=== PATIENT | female | born 1985 | race Caucasian/White ===

== ENCOUNTER → 2018-02-01 01:13 | Outpatient (CLI) | payer BC, SELFPAY ==
--- NOTE | 2018-02-01 11:41 | DI.REPORT_ITS ---
SYMPTOMS/DIAGNOSIS: DIET-CONTROLLED GESTATIONAL DIABETES MELLITUS, ESTIMATED WEIGHT/AMNIOTIC FLUID INDEX, O24.410 OB ULTRASOUND: Many abnormalities cannot be diagnosed. A normal exam does not exclude a congenital anomaly. Radiology No. [id number] LMP: Exam Date: 02/01/18 [facility] 7 wks 5 days on EDC ([facility]) 03/05/18 Confirmed: HISTORY: ---- PREDICTED GESTATIONAL AGE NUMBER 35+4 weeks with a range of 34+4 weeks to 36+4 weeks. 1 Determined by_X__1ST US___LMP___HISTORY PLACENTA PRESENTATION Grade II Cephalic_X__ Anterior_X__Posterior___ Breech____ Right Left___X____ Transverse(head right___ Fundal___Low-lying___Previa___ Transverse(head left___ Varying BIOMETRY AMNIOTIC FLUID BPD: 90 mm 36+2 weeks Normal HC: 322 mm 36+2 weeks AC: 354 mm 39+2 weeks FL: 73 mm 37+3 weeks AMNIOTIC FLUID INDEX >26 WK CRL: mm weeks Cisterna Magna: mm CI: 0.82 RUQ: 5.19 LUQ: 5.30 Cerebellum: cm EFW: 3416 grams Percentile: 98th RLQ: 4.13 LLQ: 5.94 Total: 20.6 cm Composite AGE= 37+2 wks EDC by US: 02/20/18 BIOPHYSICAL PROFILE ANATOMY IDENTIFIED SCORE 0/2 Heart: 4-Chamber___Rate:BPM 150 LVOT: RVOT: Amniotic Fluid(>2cms)____ Stomach: Kidneys:__X Respirations (>30 secs) Bladder:___X Post. Fossa: Body Flex/Extension 3 vessel cord: Ventricles: cord insertion: Lips:____ Extremity Flex/Extension spinal morphology: Nose: Total Score= Palate: NS=not seen
== END ==
PROVIDERS: PCP Physician Assistant Medical; Visit Provider Advanced Practice Midwife
DX: O24.410 Gestational diabetes mellitus in pregnancy, diet controlled (principal); Z34.03 Encounter for supervision of normal first pregnancy, third trimester; Z36.85 Encounter for antenatal screening for Streptococcus B
CPT/HCPCS: 76816; 87081

== ENCOUNTER 2018-02-06 13:54 | Outpatient (CLI) | payer BC, SELFPAY | END 2018-02-06 14:14 | PROVIDERS: PCP Physician Assistant Medical; Visit Provider Midwife | DX: O24.419 Gestational diabetes mellitus in pregnancy, unspecified control (principal); Z3A.36 36 weeks gestation of pregnancy | CPT/HCPCS: 59025 ==

== ENCOUNTER 2018-02-10 16:55 | Outpatient (CLI) | payer BC, SELFPAY | END 2018-02-10 17:15 | PROVIDERS: PCP Physician Assistant Medical; Visit Provider Advanced Practice Midwife | DX: O24.419 Gestational diabetes mellitus in pregnancy, unspecified control (principal); Z3A.36 36 weeks gestation of pregnancy | CPT/HCPCS: 59025 ==

== ENCOUNTER 2018-02-13 16:46 | Outpatient (CLI) | payer BC, SELFPAY | END 2018-02-13 17:06 | LOC: LBN 16:47 → BCD 02-22 17:06 | PROVIDERS: PCP Physician Assistant Medical; Visit Provider Midwife | DX: O24.419 Gestational diabetes mellitus in pregnancy, unspecified control (principal); Z3A.37 37 weeks gestation of pregnancy | CPT/HCPCS: 59025 ==

== ENCOUNTER 2018-02-16 14:38 | Outpatient (CLI) | payer BC, SELFPAY | END 2018-02-16 14:58 | PROVIDERS: PCP Physician Assistant Medical; Referring Provider Advanced Practice Midwife; Visit Provider Advanced Practice Midwife | DX: O24.419 Gestational diabetes mellitus in pregnancy, unspecified control (principal); Z3A.38 38 weeks gestation of pregnancy | CPT/HCPCS: 59025 ==

== ENCOUNTER 2018-02-20 14:11 | Outpatient (CLI) | payer BC, SELFPAY | END 2018-02-20 14:31 | PROVIDERS: PCP Physician Assistant Medical; Visit Provider Advanced Practice Midwife | DX: O24.419 Gestational diabetes mellitus in pregnancy, unspecified control (principal); Z3A.38 38 weeks gestation of pregnancy | CPT/HCPCS: 59025 ==

== ENCOUNTER 2018-02-23 16:01 | Outpatient (CLI) | payer BC, SELFPAY ==
[2018-02-23 17:13] LABS: HCT 37.9 % (36.0-46.0); HGB 12.8 g/dL (12.0-15.5); Mean Corp. HGB Concentration 33.8 g/dL (32.0-36.0); Mean Corpuscular Hemoglobin 31.5 pg (27.0-33.0); Mean Corpuscular Volume 93.3 fL (80-95); Mean Platelet Volume 10.5 fL (8.0-11.0); Platelet Count 180 x1000/uL (130-400); RBC 4.06 m/cumm (4.00-5.20); RBC Distribution Width 12.5 % (11.7-14.6); White Blood Cell Count 7.74 k/cumm (4.4-10.8)
[2018-02-23 17:24] LABS: ALT 16 U/L (12-78); AST 17 U/L (15-37); Albumin 2.2 g/dL (3.4-5.0); Alkaline Phosphatase 131 U/L (46-116); Bilirubin, Direct 0.05 mg/dL (0.00-0.20); Bilirubin, Total 0.2 mg/dL (0.2-1.0); CREATININE 0.69 mg/dL (0.55-1.02); Total Protein 5.7 g/dL (6.4-8.2); Uric Acid 4.6 mg/dL (2.6-6.0)
[2018-02-23 18:47] LABS: PROTEIN 14.4 mg/dL
[2018-02-23 18:48] LABS: COMMENT (LAB VIEW ONLY) 52.28 mg/dL; Prot/Crea Ur Ratio 0.27
== END 2018-02-23 16:21 ==
PROVIDERS: PCP Physician Assistant Medical; Visit Provider Advanced Practice Midwife
DX: O24.420 Gestational diabetes mellitus in childbirth, diet controlled (principal); Z3A.38 38 weeks gestation of pregnancy
CPT/HCPCS: 36415; 80076; 85027; 59025; 82565; 84156; 84550; G0378

== ENCOUNTER 2018-02-27 00:42 | Outpatient (CLI) | payer BC, SELFPAY ==
--- NOTE | 2018-02-27 12:49 | DI.US_ITS ---
SYMPTOMS/DIAGNOSIS: SERIAL GROWTH, UTERINE SIZE DISCREPANCY, O26.843, GESTATIONAL DIABETES, O24.419 OBSTETRICAL ULTRASOUND: Many abnormalities cannot be diagnosed. A normal exam does not exclude a congenital anomaly. Radiology No. [id number] LMP: Exam Date: 02/27/18 [facility] 7 wks 5 days on 07/22/17 EDC ([facility]) 03/05/18 Confirmed: HISTORY: ---- PREDICTED GESTATIONAL AGE NUMBER 39 weeks with a range of 38 weeks to 40 weeks. 1 Determined by_X__1ST US___LMP___HISTORY PLACENTA PRESENTATION Grade II Cephalic_X__ Anterior_X__Posterior___ Breech____ Right Left Transverse(head right___ Fundal___Low-lying___Previa___ Transverse(head left___ Varying BIOMETRY AMNIOTIC FLUID BPD: 95 mm 38+4 weeks Normal HC: 347 mm 40+2 weeks AC: 399 mm OFF CHART FL: 78 mm 40 weeks AMNIOTIC FLUID INDEX >26 WK CRL: mm weeks Cisterna Magna: mm CI: 0.8 RUQ: 2.98 LUQ: 6.83 Cerebellum: cm EFW: 4560 grams Percentile: 99th RLQ: 5.19 LLQ: 4.55 Total: 19.6 cm Composite AGE= 39+4 wks EDC by US: 03/02/18 BIOPHYSICAL PROFILE ANATOMY IDENTIFIED SCORE 0/2 Heart: 4-Chamber___Rate:BPM 155 LVOT: RVOT: Amniotic Fluid(>2cms)____ Stomach:___X____ Kidneys: Respirations (>30 secs) Bladder:____X____ Post. Fossa: Body Flex/Extension 3 vessel cord: Ventricles: cord insertion: Lips:____ Extremity Flex/Extension spinal morphology: Nose: Total Score= Palate: NS=not seen COMMENTS: Routine examination. There is a single intrauterine gestation. Estimated sonographic age is 39 weeks 4 days. The fetus is in the cephalic presentation. heart rate is 155 beats per minute. An entire anatomic evaluation was not performed at this time. The amniotic fluid index is 19.6 cm. Visually, the amniotic fluid is within normal limits. Estimated weight is 4560 g, which is the 99th percentile. The placenta is anterior without evidence of previa. IMPRESSION: Single living intrauterine gestation. Estimated sonographic age is 39 weeks 4 days.
== END 2018-02-27 01:02 ==
PROVIDERS: PCP Physician Assistant Medical; Visit Provider Advanced Practice Midwife
DX: O26.843 Uterine size-date discrepancy, third trimester (principal); O24.419 Gestational diabetes mellitus in pregnancy, unspecified control
CPT/HCPCS: 76816

== ENCOUNTER 2018-02-27 08:57 | Outpatient (CLI) | payer BC, SELFPAY | END 2018-02-27 09:17 | PROVIDERS: PCP Physician Assistant Medical; Visit Provider Midwife | DX: O24.419 Gestational diabetes mellitus in pregnancy, unspecified control (principal); Z3A.39 39 weeks gestation of pregnancy | CPT/HCPCS: 59025 ==

== ENCOUNTER 2018-02-28 10:04 | Outpatient (CLI) | payer BC, SELFPAY ==
[2018-02-28 10:29] LABS: Abs Immature Grans 0.02 k/cumm (0.0-0.09); Absolute Basophil Count 0.01 k/cumm (0.0-0.2); Absolute Eosinophil Count 0.04 k/cumm (0.0-0.7); Absolute Lymphocyte Count 1.95 k/cumm (1.2-3.4); Absolute Monocyte Count 0.41 k/cumm (0.11-0.7); Absolute Neutrophil Count 5.68 k/cumm (1.2-6.7); Basophils % 0.1; Eosinophils % 0.5; HCT 40.1 % (36.0-46.0); HGB 13.7 g/dL (12.0-15.5); Immature Grans % 0.2; Mean Corp. HGB Concentration 34.2 g/dL (32.0-36.0); Mean Corpuscular Volume 93.7 fL (80-95); Mean Platelet Volume 10.6 fL (8.0-11.0); Monocytes % 5.1; Neutrophils % 70.1; Platelet Count 179 x1000/uL (130-400); RBC 4.28 m/cumm (4.00-5.20); RBC Distribution Width 12.5 % (11.7-14.6); White Blood Cell Count 8.11 k/cumm (4.4-10.8)
== END 2018-02-28 10:24 ==
PROVIDERS: PCP Physician Assistant Medical; Visit Provider Obstetrics & Gynecology
DX: Z34.91 Encounter for supervision of normal pregnancy, unspecified, first trimester (principal); Z01.84 Encounter for antibody response examination
CPT/HCPCS: 36415; 86850; 86900; 86901; 85025

== ENCOUNTER 2018-03-01 06:09 | Inpatient (IN) | payer BC, SELFPAY ==
[2018-03-01] VITALS (12 sets, daily range): BP systolic 133; BP diastolic 92; PULSE 93; RESP 16–18; TEMP 36.9; O2SAT 94–100
--- NOTE | 2018-03-01 07:02 | W.PM.HP.N ---
Date of service: 03/01/18 Assessment and Plan (1) Diet controlled gestational diabetes mellitus (GDM) in third trimester: Current visit: No Status: Acute (2) macrosomia during : Current visit: Yes Status: Acute Plan to proceed with primary section for suspected macrosomia in a patient whose is complicated by GDM. The patient was counseled on the risks of surgery including hemorrhage, infection and injury to other organs such as bowel and bladder. All questions were answered to the patient's satisfaction and consent was obtained. History of Present Illness Chief Complaint: Suspected macrosomia. Gestational diabetes Narrative: 32 year old @39.2 weeks here today for primary section. The patient's has been complicated by GDM and EFW of 4560 gms with growth at >99%. The patient was counseled on the increased risk of abnormal labors and shoulder dystocia. The patient elects to proceed with primary section at term. Review of Systems Review of Systems All systems reviewed & are unremarkable except as noted in HPI and below PFSH Family History Father Hyperlipidemia Medical History Contraception Vaginal pain Social History adopted: No foster care: No household members: spouse lives independently: Yes number of children: 0 current occupational status: employed current occupation: [employer] pets and animals: Yes pets and animals: cat(s) duration: 30-45 minutes/day Smoking/Tobacco Use Status: Never alcohol intake: current alcohol intake frequency: a few times a week Alcohol type: beer substance use type: does not use special esperanza needs: No seatbelt use: always helmet use: Yes water heater temp set < 120 deg: No working smoke detector in home: Yes fire extinguisher in home: Yes carbon monox detector in home: Yes firearms in home: Yes victim of physical abuse: No victim of emotional abuse: No victim of sexual abuse: No Meds Home Medications Medication Instructions Recorded Confirmed Type PNV cmb#95-ferrous fumarate-FA 1 ea PO DAILY 08/02/17 03/01/18 History [Prenavite] aspirin [Aspir 81] 81 mg PO DAILY #180 tab-cap MDD 81 08/31/17 03/01/18 Rx mg blood sugar diagnostic [Freestyle #180 strip 12/12/17 02/23/18 Rx Lite Strips] blood-glucose meter [Freestyle #1 kit 12/12/17 02/23/18 Rx Lite Meter] lancets [Freestyle Lancets] #180 ea 12/12/17 02/23/18 Rx Allergies Allergy/AdvReac Type Severity Reaction Status Date / Time No Known Drug Allergies Allergy Unverified 03/01/18 06:41 Exam Const General: cooperative, healthy appearing and well groomed Chest Chest: normal inspection of the chest Resp Auscultation: clear to auscultation bilaterally Cardio Rate: regular rate Rhythm: regular rhythm Neuro General: alert, awake and oriented x3
--- NOTE | 2018-03-01 07:07 | HPE_ITS ---
Date of service: 03/01/18 Assessment and Plan (1) Diet controlled gestational diabetes mellitus (GDM) in third trimester: Current visit: No Status: Acute (2) macrosomia during : Current visit: Yes Status: Acute Plan to proceed with primary section for suspected macrosomia in a patient whose is complicated by GDM. The patient was counseled on the risks of surgery including hemorrhage, infection and injury to other organs such as bowel and bladder. All questions were answered to the patient's satisfaction and consent was obtained. History of Present Illness Chief Complaint: Suspected macrosomia. Gestational diabetes Narrative: 32 year old @39.2 weeks here today for primary section. The patient's has been complicated by GDM and EFW of 4560 gms with growth at >99%. The patient was counseled on the increased risk of abnormal labors and shoulder dystocia. The patient elects to proceed with primary section at term. Review of Systems Review of Systems All systems reviewed & are unremarkable except as noted in HPI and below PFSH Family History Father Hyperlipidemia Medical History Contraception Vaginal pain Social History adopted: No foster care: No household members: spouse lives independently: Yes number of children: 0 current occupational status: employed current occupation: [employer] pets and animals: Yes pets and animals: cat(s) duration: 30-45 minutes/day Smoking/Tobacco Use Status: Never alcohol intake: current alcohol intake frequency: a few times a week Alcohol type: beer substance use type: does not use special esperanza needs: No seatbelt use: always helmet use: Yes water heater temp set < 120 deg: No working smoke detector in home: Yes fire extinguisher in home: Yes carbon monox detector in home: Yes firearms in home: Yes victim of physical abuse: No victim of emotional abuse: No victim of sexual abuse: No Meds Home Medications Medication Instructions Recorded Confirmed Type PNV cmb#95-ferrous fumarate-FA 1 ea PO DAILY 08/02/17 03/01/18 History [Prenavite] aspirin [Aspir 81] 81 mg PO DAILY #180 tab-cap MDD 81 08/31/17 03/01/18 Rx mg blood sugar diagnostic [Freestyle #180 strip 12/12/17 02/23/18 Rx Lite Strips] blood-glucose meter [Freestyle #1 kit 12/12/17 02/23/18 Rx Lite Meter] lancets [Freestyle Lancets] #180 ea 12/12/17 02/23/18 Rx Allergies Allergy/AdvReac Type Severity Reaction Status Date / Time No Known Drug Allergies Allergy Unverified 03/01/18 06:41 Exam Const General: cooperative, healthy appearing and well groomed Chest Chest: normal inspection of the chest Resp Auscultation: clear to auscultation bilaterally Cardio Rate: regular rate Rhythm: regular rhythm Neuro General: alert, awake and oriented x3
[2018-03-01] MEDS: Lactated Ringers 1,000 ML 125 ML IV ×2 (07:35→09:09)
[2018-03-01] MEDS: Oxytocin 10 UNITS/ML VIAL (08:25)
[2018-03-01] MEDS: Ketorolac 30 MG/ML VIAL IVP (10:47)
[2018-03-01] MEDS: Normal Saline Flush 10 ML SYR IVP (10:48)
[2018-03-01] MEDS: Acetaminophen 325 MG TAB 650 MG PO ×2 (14:02→18:20)
--- NOTE | 2018-03-01 15:50 | ROE_ITS ---
Date of service: 03/01/18 Operative Note DATE OF PROCEDURE: 03/01/18 PRE-OP DIAGNOSIS: 39 weeks. GDM with suspected macrosomia POST-OP DIAGNOSIS: same PROCEDURE: Primary low transverse section SURGEON: Merritt Porter ENVIRONMENTAL SERVICES ASSISTANT: Carline Santillan ANESTHESIA: spinal ESTIMATED BLOOD LOSS: 900 Patient was transported to: PACU Patient's condition: stable Findings: 1. Delivered a LBM with thick meconium. 9,9. Nuchal cord x 1 weighing 9 lbs 11 oz. 2. Mild uterine atony managed with IV and intrauterine pitocin Procedure Description: The patient was taken to the operating room and after adequate spinal anesthesia the patient was prepped and draped in the usual sterile manner. A Pfannestiel skin incision was made with a 10 blade scalpel. Dissection was carried down to the underlying fascia with the Bovie. The fascia was opened with the scalpel and extended laterally in either direction with Sutherland scissors. The superior and inferior aspects of the fascial incision were dissected off the underlying layer of rectus muscles with both blunt and sharp dissection. The rectus were unzipped along the linea alba with blunt and sharp dissection. The peritoneum was opened with Metzenbaum scissors and extended superior and inferiorly with the scissors. The bladder blade was inserted. The vesicouterine flap was tented up with pickups and incised with the Metzenbaum scissors. The bladder flap was developed digitally. The uterus was incised in a transverse manner with the scalpel and the incision extended via stretch. The was found in cephalic presentation with thick meconium and nuchal cord x 1. The cord was clamped and cut and the was handed off to the awaiting geospatial applications developer. The placenta was manually extracted and cleared of all clots and debris. The incision was closed first with a running locked stitch of #1 chronic and then a second layer in running #1 chromic. The bladder flap was reapproximated with a running stitch of 3-0 vicryl. There was a small bleeder at the fimbria of the right fallopian tube which was managed with the bovie cautery. Mild uterine atony was encountered and in addition to IV pitocin which had been administered , 10 units of pitocin was injected intrauterine. The peritoneum was closed with a running stitch of 2-0 vicryl. The fascia was closed with a running stitch of 0 -vicryl. The subcutaneous tissues were irrigated and bleeders cauterized. The subcutaneous tissues were reapproximated with interrupted sutures of 3-0 vicryl. The skin was closed with a running subcuticular stitch of 4-0 monocryl and dermabond applied. Sponge lap and need counts were correct x 3 at the conclusion of the procedure. The patient tolerated the procedure well and was transferred to PACU in stable condition.
[2018-03-01] MEDS: Lactated Ringers 1,000 ML 120 ML IV (16:35)
[2018-03-02] MEDS: Acetaminophen 325 MG TAB 650 MG PO (04:55)
[2018-03-02 07:18] LABS: HCT 30.3 % (36.0-46.0); HGB 10.4 g/dL (12.0-15.5); Mean Corp. HGB Concentration 34.3 g/dL (32.0-36.0); Mean Corpuscular Hemoglobin 32.7 pg (27.0-33.0); Mean Corpuscular Volume 95.3 fL (80-95); Mean Platelet Volume 10.8 fL (8.0-11.0); Platelet Count 130 x1000/uL (130-400); RBC 3.18 m/cumm (4.00-5.20); RBC Distribution Width 12.5 % (11.7-14.6); White Blood Cell Count 10.77 k/cumm (4.4-10.8)
[2018-03-02] MEDS: oxyCODONE 5 mg/Acetaminophen 325 mg TAB PO ×4 (08:15→19:59)
[2018-03-02] MEDS: Prenatal Multivitamin w/CA,FE TAB 1 TAB PO (08:16)
[2018-03-02] MEDS: Docusate Sodium 100 MG CAP PO (08:16)
[2018-03-03] MEDS: oxyCODONE 5 mg/Acetaminophen 325 mg TAB PO ×4 (00:14→12:26)
[2018-03-03] MEDS: Docusate Sodium 100 MG CAP PO (08:51)
[2018-03-03] MEDS: Prenatal Multivitamin w/CA,FE TAB 1 TAB PO (08:51)
== END 2018-03-03 14:43 | disposition home or self-care (01) | DRG 766 ==
LOC: PDS 06:09 → OBS 10:08
PROVIDERS: Admitting Provider Obstetrics & Gynecology; PCP Physician Assistant Medical; Visit Provider Obstetrics & Gynecology
PROC: 10D00Z1 Extraction of Products of Conception, Low, Open Approach (ICD-10-PCS; CPT 59514; principal; 2018-03-01 07:30)
DX: O24.420 Gestational diabetes mellitus in childbirth, diet controlled (principal); Z37.0 Single live birth; O69.81X0 Labor and delivery complicated by cord around neck, without compression, not applicable or unspecified; O77.0 Labor and delivery complicated by meconium in amniotic fluid; Z3A.39 39 weeks gestation of pregnancy
CPT/HCPCS: 59514; 36415; 85027; 99223; J0690; J2370; J2405; J2590; J3010; J3490

== ENCOUNTER 2018-09-14 17:22 | Outpatient (REF) | payer BC, SELFPAY | END 2018-09-14 17:42 | LOC: NCHCN 17:22 | PROVIDERS: PCP Physician Assistant Medical; Visit Provider Specialist/Technologist Athletic Trainer | DX: L08.9 Local infection of the skin and subcutaneous tissue, unspecified (principal) | CPT/HCPCS: 87077; 87070; 87186; 87205 ==

== ENCOUNTER 2019-07-25 12:09 | Outpatient (CLI) | payer BC, SELFPAY ==
[2019-07-25 12:45] LABS: Abs Immature Grans 0.02 k/cumm (0.0-0.09); Absolute Basophil Count 0.02 k/cumm (0.0-0.2); Absolute Eosinophil Count 0.06 k/cumm (0.0-0.7); Absolute Lymphocyte Count 2.24 k/cumm (1.2-3.4); Absolute Monocyte Count 0.55 k/cumm (0.11-0.7); Basophils % 0.2; Eosinophils % 0.7; HCT 40.5 % (36.0-46.0); HGB 13.8 g/dL (12.0-15.5); Immature Grans % 0.2 %; Lymphocytes % 25.5; Mean Corp. HGB Concentration 34.1 g/dL (32.0-36.0); Mean Corpuscular Hemoglobin 30.6 pg (27.0-33.0); Mean Corpuscular Volume 89.8 fL (80-95); Mean Platelet Volume 9.7 fL (8.0-11.0); Monocytes % 6.3; Neutrophils % 67.1; Platelet Count 235 x1000/uL (130-400); RBC 4.51 m/cumm (4.00-5.20); RBC Distribution Width 13.1 % (11.7-14.6); White Blood Cell Count 8.79 k/cumm (4.4-10.8)
[2019-07-25 13:43] LABS: TSH (W/Ref FT4) 1.31 uIU/mL (0.36-3.74)
[2019-07-26 11:01] LABS: Rubella IgG Ab (UVM) Positive (See Note); Varicella IgG Antibody Positive (See Note)
[2019-07-26 11:20] LABS: Hepatitis B Surface Ag Negative (Negative)
[2019-07-26 11:21] LABS: HIV-1/2 Ag & Ab Screen Negative (Negative)
[2019-07-26 11:23] LABS: Hepatitis C Ab w Rflx HCV PCR Negative (Negative)
[2019-07-27 09:50] LABS: Syphilis Total Ab w/Reflex Nonreactive (Nonreactive)
== END 2019-07-25 12:29 ==
PROVIDERS: PCP Physician Assistant Medical; Visit Provider Advanced Practice Midwife
DX: Z34.91 Encounter for supervision of normal pregnancy, unspecified, first trimester (principal); Z11.4 Encounter for screening for human immunodeficiency virus [HIV]; Z11.59 Encounter for screening for other viral diseases; Z01.84 Encounter for antibody response examination
CPT/HCPCS: 36415; 86787; 86803; 86850; 86900; 86901; 87340; 87389; 84443; 85025; 86762; 86780

== ENCOUNTER 2019-07-25 13:46 | Outpatient (REF) | payer BC, SELFPAY ==
[2019-07-25 15:21] LABS: *AMPHETAMINES SCREEN URINE Negative (Negative); *BARBITURATES SCREEN URINE Negative (Negative); *BENZODIAZEPINES SCREEN URINE Negative (Negative); Cannabinoids THC Negative (Negative); Cocaine Screen,Urine Negative (Negative); METHADONE URINE SCREEN Negative (Negative); OPIATES URINE SCREEN Negative (Negative)
[2019-07-25 15:23] LABS: Tricyclic Antidepressants Negative (Negative)
[2019-07-28 11:22] LABS: Buprenorphine Negative; Norbuprenorphine Negative
== END 2019-07-25 14:06 ==
LOC: LBN 13:46
PROVIDERS: PCP Physician Assistant Medical; Visit Provider Advanced Practice Midwife
DX: Z34.91 Encounter for supervision of normal pregnancy, unspecified, first trimester (principal)
CPT/HCPCS: 80307; 87086

== ENCOUNTER 2019-07-30 01:20 | Outpatient (CLI) | payer BC, SELFPAY ==
--- NOTE | 2019-07-30 12:15 | DI.US_ITS ---
EXAM: US OB 1ST TRIMESTER CLINICAL HISTORY: PT DECLINES T/V USG. Z34.90 SUPERVISION NORMAL TECHNIQUE: Ultrasound performed using standard protocol. OB ultrasound was performed utilizing 1st trimester protocol. COMPARISON: US OB HERNAN weight from 02/27/2018 FINDINGS: There is a single viable intrauterine gestation. Unremarkable appearance of the trophoblast. Annada- rump length measurements are consistent with gestational age of 11 weeks 0 days and EDC of 02/18/2020 . cardiac activity is observed at a rate of 165 BPM. DATA REPOSITORY:
== END 2019-07-30 01:40 ==
PROVIDERS: PCP Physician Assistant Medical; Visit Provider Advanced Practice Midwife
DX: Z34.90 Encounter for supervision of normal pregnancy, unspecified, unspecified trimester (principal); Z3A.11 11 weeks gestation of pregnancy
CPT/HCPCS: 76801

== ENCOUNTER 2019-08-07 08:05 | Outpatient (CLI) | payer BC, SELFPAY ==
[2019-08-07 09:22] LABS: Glucose,1 Hr (Glucola) 154 mg/dL (80-140)
[2019-08-07 09:58] LABS: Kit/Specimen SENT
== END 2019-08-07 08:25 ==
PROVIDERS: PCP Physician Assistant Medical; Visit Provider Advanced Practice Midwife
DX: Z34.91 Encounter for supervision of normal pregnancy, unspecified, first trimester (principal); Z36.89 Encounter for other specified antenatal screening
CPT/HCPCS: 36415; 82950

== ENCOUNTER 2019-09-20 01:07 | Outpatient (CLI) | payer OTHER, SELFPAY ==
--- NOTE | 2019-09-20 06:45 | DI.US_ITS ---
EXAM: US OB 2-3 TRIMESTER CLINICAL HISTORY: anatomy survey at 18 wks,z34.90. TECHNIQUE: Transabdominal obstetrical ultrasound performed. COMPARISON: US OB 1ST TRIMESTER from 07/30/2019 FINDINGS: Transabdominal obstetrical ultrasound performed. FINDINGS: Number of fetuses: One. position: Variable heart rate: 147 bpm. Placental grade: 0-1 Placental location: Posterior. No evidence of previa. BIOMETRIC DATA: BPD: 4.2cm= 18.6 weeks HC: 15.6cm = 18+ 4 weeks AC: 13.7cm 19+ 1 weeks FL: 2.8cm 18.3 weeks Cisterna Magna: 3.5 millimeters Cerebellum: 1.88 cm EFW: 255 grms 65% Composite Age: 18+ 5 EDC by US: 16 February 2020 Amount of fluid is within normal limits. ANATOMICAL SURVEY: Four-chambered heart: Unremarkable. LVOT: Unremarkable. RVOT: Unremarkable. Left-sided stomach: Unremarkable. urinary bladder: Unremarkable. Bilateral kidneys: Unremarkable. Three-vessel cord: Unremarkable. Cord insertion: Unremarkable. Umbilical artery velocity: Unremarkable. Posterior fossa:Unremarkable. ventricles: Unremarkable. nose: Unremarkable. lips: Unremarkable. palate: Unremarkable. spine: Unremarkable. Two arms and two legs: Unremarkable. IMPRESSION: 1. Single live intrauterine gestation measuring 18 weeks 5 days. 2. Normal anatomic survey. DATA REPOSITORY:
--- NOTE | 2019-11-01 15:10 | W.DIABETESNO ---
Date of service: 11/01/19 Time of Service: 15:10 Diabetes Note NOTE: Unable to contact Anna, left message, emailed and sent letter to home re: GDM and diet. Will attempt to meet at next appt in house. 3 hour GTT scheduled for 11/07/19. Time Spent in Nutritional Counseling and Treatment: 0 time
== END 2019-09-20 01:27 ==
PROVIDERS: PCP Physician Assistant Medical; Visit Provider Advanced Practice Midwife
DX: Z34.92 Encounter for supervision of normal pregnancy, unspecified, second trimester (principal); Z3A.18 18 weeks gestation of pregnancy
CPT/HCPCS: 76805

== ENCOUNTER 2019-11-07 02:34 | Outpatient (CLI) | payer OTHER, SELFPAY ==
[2019-11-07 08:24] LABS: Mean Corp. HGB Concentration 33.3 g/dL (32.0-36.0); Mean Corpuscular Hemoglobin 30.9 pg (27.0-33.0); Mean Corpuscular Volume 92.8 fL (80-95); Mean Platelet Volume 9.7 fL (8.0-11.0); Platelet Count 225 x1000/uL (130-400); RBC 3.88 m/cumm (4.00-5.20); RBC Distribution Width 13.2 % (11.7-14.6); White Blood Cell Count 8.54 k/cumm (4.4-10.8)
[2019-11-07 09:59] LABS: Glucose 1 Hour 177 mg/dL
[2019-11-07 12:08] LABS: Glucose 3 Hour 118 mg/dL
== END 2019-11-07 02:54 ==
PROVIDERS: PCP Physician Assistant Medical; Visit Provider Advanced Practice Midwife
DX: O99.810 Abnormal glucose complicating pregnancy (principal)
CPT/HCPCS: 36410; 85027; 82951

== ENCOUNTER 2019-12-18 13:26 | Outpatient (CLI) | payer OTHER, SELFPAY ==
[2019-12-18 14:45] LABS: HCT 35.5 % (36.0-46.0); HGB 11.7 g/dL (12.0-15.5); Mean Corpuscular Hemoglobin 30.2 pg (27.0-33.0); Mean Corpuscular Volume 91.7 fL (80-95); Mean Platelet Volume 10.1 fL (8.0-11.0); Platelet Count 252 x1000/uL (130-400); RBC 3.87 m/cumm (4.00-5.20); RBC Distribution Width 13.3 % (11.7-14.6); White Blood Cell Count 8.21 k/cumm (4.4-10.8)
--- NOTE | 2019-12-18 15:13 | DIABASSESS_ITS ---
Date of service: 12/18/19 Time of Service: 15:13 Diabetes Note NOTE: Met with Anna in [facility] today. ROBER 02/18/20 and reports feeling tired but well overall. She reports fasting sugars <95mg/dl. Post prandials range from 91-145 mg/dl. She reports readings > 130 mg/dl occur after eating convenience foods. I reviewed importance of maintaining tight blood sugar control and provided her with meal plan ideas. She is knowledgeable about nutrition and diabetes from previous and is motivated to follow good nutrition for this . She is no longer checking blood sugars but is willing to check them as MD recommends. Overall, she is follow well balanced meals and blood sugar in adequate control. Time Spent in Nutritional Counseling and Treatment: 10 min spent face to face
== END 2019-12-18 13:46 ==
PROVIDERS: PCP Physician Assistant Medical; Visit Provider Advanced Practice Midwife
DX: Z34.93 Encounter for supervision of normal pregnancy, unspecified, third trimester (principal); Z3A.30 30 weeks gestation of pregnancy
CPT/HCPCS: 36415; 85027; 86850; 90384

== ENCOUNTER 2020-01-15 01:29 | Outpatient (CLI) | payer OTHER, SELFPAY ==
--- NOTE | 2020-01-15 08:00 | DI.US_ITS ---
EXAM: US OB HERNAN WEIGHT CLINICAL HISTORY: Suspected macrosomia,Z34.90. TECHNIQUE: Transabdominal obstetrical ultrasound performed. COMPARISON: US US OB 2-3 TRIMESTER from 09/20/2019 FINDINGS: Transabdominal obstetrical ultrasound performed. FINDINGS: Number of fetuses: One. position: Cephalic heart rate: 141 bpm. Placental location: Posterior. No evidence of previa. BIOMETRIC DATA: EFW: 3315 grms 98% Composite Age: 37 weeks 3 days EDC: 02/02/2020 Heart Rate: 141BPM Amniotic fluid index: 21 cm. Visually, amount of fluid is within normal limits. IMPRESSION: 1. Single live intrauterine gestation as above. 2. Estimated weight is 3315 g. This is a 98th percentile. DATA REPOSITORY:
== END 2020-01-15 01:49 ==
PROVIDERS: PCP Physician Assistant Medical; Visit Provider Obstetrics & Gynecology
DX: Z34.93 Encounter for supervision of normal pregnancy, unspecified, third trimester (principal)
CPT/HCPCS: 76816

== ENCOUNTER 2020-01-22 15:34 | Outpatient (REF) | payer OTHER, SELFPAY ==
[2020-01-22 17:07] LABS: *AMPHETAMINES SCREEN URINE Negative (Negative); *BARBITURATES SCREEN URINE Negative (Negative); *BENZODIAZEPINES SCREEN URINE Negative (Negative); Cannabinoids THC Negative (Negative); Cocaine Screen,Urine Negative (Negative); METHADONE URINE SCREEN Negative (Negative); OPIATES URINE SCREEN Negative (Negative)
[2020-01-22 17:08] LABS: Tricyclic Antidepressants Negative (Negative)
[2020-01-29 18:47] LABS: Buprenorphine Negative
== END 2020-01-22 15:54 ==
LOC: LBN 15:34
PROVIDERS: PCP Physician Assistant Medical; Visit Provider Obstetrics & Gynecology Gynecology
DX: Z34.90 Encounter for supervision of normal pregnancy, unspecified, unspecified trimester (principal)
CPT/HCPCS: 80307; 87081

== ENCOUNTER 2020-01-28 11:50 | Observation (INO) | payer OTHER, SELFPAY | END 2020-01-28 15:00 | disposition home or self-care (01) | LOC: OBS 16:00 | PROVIDERS: Admitting Provider Obstetrics & Gynecology Gynecology; PCP Physician Assistant Medical; Visit Provider Obstetrics & Gynecology Gynecology | DX: O47.1 False labor at or after 37 completed weeks of gestation (principal); Z3A.37 37 weeks gestation of pregnancy; O34.211 Maternal care for low transverse scar from previous cesarean delivery | CPT/HCPCS: G0378 ==

== ENCOUNTER 2020-01-30 16:24 | Inpatient (IN) | payer OTHER, SELFPAY ==
--- NOTE | 2020-01-30 17:43 | HPE_ITS ---
Date of service: 01/30/20 Time of Service: 17:43 Assessment and Plan Assessment and plan (1) Uterine contractions: Status: Acute Assessment and plan: Plan at this time is to proceed with a deli very. She was informed of the risks of the procedure including the risk of infection damage to surrounding structures including bowel bladder and surrounding organs. She is aware that in the event of bleeding a hysterectomy may be needed. Informed consent was signed and her questions were answered. (2) Previous delivery affecting : Status: Acute Assessment and plan: Patient prior the liver. She wishes to proceed with a delivery and permanent sterilization. History of Present Illness History of Present Illness Chief Complaint: IUP at 37w2d EGA, contractions, previous c/s Narrative: Pt is a 34yo female currently 37w2d EGA by LMP dating confirmed by 1st trimester u/s who presents to with report of painful, regular contractions beginning approximately an hour ago. The patient experienced similar symptoms on 01/28/2020 and had been observed for several hours on the center with no appreciable change in cervical dilation. [facility] She has had a total of 14 visits for semester blood pressure 106/74 there trimester blood pressure 110/78. She had normal morphology ultrasound and was followed for an elevated Glucola with normal capillary blood glucose measurements during her . Patient is Rh- and received RhoGam at 28 weeks. During her was she was counseled regarding versus repeat . She declined a trial of labor and has signed a Medicaid consent for permanent sterilization. Review of Systems Constitutional Constitutional: Reports body ache(s) and Reports difficulty sleeping Cardiovascular Cardiovascular: Reports system reviewed and no additional complaints, except as documented Respiratory Respiratory: Reports system reviewed and no additional complaints, except as documented Gastrointestinal Gastrointestinal: Reports abdominal pain (Diffuse non-focal, no CVA tenderness) Genitourinary Genitourinary: Denies vaginal discharge Comments: No spontaneous rupture membranes. Patient reports good movement Musculoskeletal Musculoskeletal: Reports system reviewed and no additional complaints, except as documented Psychiatric Psychiatric: Reports system reviewed and no additional complaints, except as documented [facility] Medical History (Updated 01/30/20 @ 17:54 by Lucie Bello MD) Contraception Depo Provera as a teenager. Uses contraceptiv sponge macrosomia during (Resolved) History of gestational diabetes (Acute) Strep throat (Acute) chronic reinfections as child ~ 12 episodes. Vaginal pain 04/2014 Vag path screen was neg. Herpes testing neg. Viral meningitis (Acute) @ 14 yo 03/29/00 @ [facility] see records Surgical History (Updated 01/30/20 @ 17:54 by Lucie Bello MD) Previous section (Chronic) for lga infant actual wt. 9.11 lbs Family History Father Hyperlipidemia Paternal Grandfather Colon cancer Social History Smoking/Tobacco Use Status: Never Alcohol Intake: current Alcohol Intake frequency: a few times a week Alcohol type: beer Drug use: Never Substance use type: does not use Adopted: No Foster care: No Household members: spouse Number of Children: 1 current occupation: [employer] office Pets and animals: Yes Pets and animals: cat(s) Do you think of yourself as: straight/heterosexual Current gender identity: female What is your relationship status?: Panel score (0-1 are the most socially isolated patients): 1 Duration: 30-45 minutes/day Special esepranza needs: No Seatbelt use: always Helmet use: Yes Water heater temp set <120 deg: No Working smoke detector in home: Yes Fire extinguisher in home: Yes Carbon monox detector in home: Yes Firearms in home: Yes Victim of physical abuse: No Victim of emotional abuse: No Victim of sexual abuse: No History History 2 Para 1 Hx # Term Pregnancies 1 Multiple births 0 Hx # Pregnancies 0 Ectopic pregnancies 0 AB induced 0 Hx Number of Living Children 1 AB spontaneous 0 Past Pregnancies Del. Date GA/Weeks # Outcome Route Wgt Sex Labor Lgth Anesthes ia Location Prov Complic 03/01/18 39 No Successful 9 lb 11 oz Male елена ma md Delivery Date: 03/01/18 39 wks. GDM with suspected macrosomia low transverse Leny Tam LPN Home Medications and Allergies Home Medications Medication Instructions Recorded Confirmed Type prenat.vits,michelle,bhe-dtuj-qwtwa 1 tab PO DAILY 06/27/19 01/30/20 History aspirin 81 mg chewable tablet 81 mg PO DAILY 08/14/19 01/30/20 History blood sugar diagnostic #180 strip 08/14/19 01/30/20 Rx lancets 28 gauge #180 ea 08/14/19 01/30/20 Rx Allergies Allergy/AdvReac Type Severity Reaction Status Date / Time No Known Drug Allergies Allergy Verified 01/29/20 13:32 Exam Narrative Exam Narrative: On admission to the center she was noted be shoshana every 3 to 4 minutes with category 1 heart rate tracing accelerations of the heart rate 50 beats over baseline 15 seconds. Sterile vaginal exam: Closed, soft vertex at -2 station no appreciable effacement. I counseled the patient based on her contraction pattern that I would recommend proceeding with the repeat delivery with tubal sterilization. She reiterated that she desires permanent sterilization Const General: cooperative and in distress (Uncomfortable reacting to contractions) mild Nutritional Appearance: obese Orientation: alert, awake and oriented x3 Neck Neck: normal visual inspection Resp Effort & Inspection: normal respiratory effort Auscultation: clear to auscultation bilaterally Manual OB Exam: dilated (0), effaced 0% and station -2 Amniotic Fluid: no fluid Skin General skin exam: no rashes or lesions noted Extrem General: normal to inspection and no clubbing, cyanosis or edema Psych Appearance: grossly normal Mental Status: mental status grossly normal Speech and Movement: speech and movement normal Mood: congruent mood Results Labs Result diagrams: 01/30/20 Unknown COVID-19 Screening Have you,or household,traveled outside [place] in last 14 days?: No
[2020-01-30 17:47] LABS: HCT 36.4 % (36.0-46.0); HGB 11.8 g/dL (11.2-15.7); MCH 29.1 pg (27.0-33.0); MCHC 32.4 % (32.0-36.0); MCV 89.9 fL (80-95); MPV 10.4 fL (8.0-11.0); Platelet Count 224 10^3/uL (130-400); RBC 4.05 10^6/uL (3.93-5.22); RDW 13.3 % (11.7-14.6); RDW-SD 43.4 fL; WBC 8.33 10^3/uL (4.4-10.8)
[2020-01-30] MEDS: Sodium Citrate 30 ML CUP PO (17:50)
[2020-01-30] MEDS: Lactated Ringers 1,000 ML 200 ML IV ×2 (18:00→19:13)
[2020-01-30] MEDS: ceFAZolin 2 GM/50 ML BAG IVPB (18:30)
--- NOTE | 2020-01-30 19:03 | FALL_PTH ---
PATIENT: Anna Carter LOC: OBS U#:[id number] AGE/SX: 34/F ROOM: OBS.301 RE01/30/[address]: Lucie Bello : 1985 BED: A DIS: 02/01/2020 SPEC #: [id number] RECD: 01/31/20 12:33 STATUS: JENNIE RERossy #: [id number] RAJ: 01/30/20 19:[address]: Lucie Bello DEPT: Surgical Specimen RECD BY: Nohelia Cortez ENTERED: 01/31/20 12:34 SP TYPE: Fall OTHR DR: Arnold Burt Tissues: 1 - FALLOPIAN TUBE (STERILIZATION) 2 - FALLOPIAN TUBE (STERILIZATION) Procedures: GROSS AND MICRO LEVEL 2 Comments: [id number]
--- NOTE | 2020-01-30 20:01 | W.PM.OP ---
Operative Note Operative Note DATE OF PROCEDURE: 01/30/20 PRE-OP DIAGNOSIS: IUP at 37 weeks 2 days EGA with uterine contractions and previous Multiparity desiring permanent sterilization PROCEDURE: Urgent unscheduled elective repeat delivery with bilateral salpingectomy SURGEON: Lucie Bello DEVELOPMENT AND HOUSING DIRECTOR: Nicki Abad ANESTHESIA: spinal ESTIMATED BLOOD LOSS: 900 PATHOLOGY: other (Bilateral fallopian tubes to pathology) COMPLICATIONS: None Patient was transported to: floor Patient's condition: stable Indications: 34-year-old G2, P1 female with increasingly regular painful uterine contractions at 37 weeks 2 days EGA. Patient had been scheduled for repeat delivery and bilateral salpingectomy at 39 weeks. She declined a trial of labor for this . Findings: Viable female weighing 3600gms Apgars of 8/9 and vertex presentation LOT position ,clear amniotic fluid, normal uterus fallopian tubes and ovaries. The infant will be named Karla. Procedure Description: Patient was taken to the operating room she is placed in the sitting position and spinal anesthesia was administered without difficulty. She was then placed in the dorsal supine position with a leftward tilt. SCDs and a Henderson catheter to gravity drainage were in place. A vaginal prep with Betadine was performed and the patient was prepped and draped in the usual sterile fashion. After a adequate level of anesthesia was achieved a Pfannenstiel skin incision was made approximately 2 cm superior to the pubic symphysis using a scalpel and the underlying subcutaneous tissue dissected using Bovie electrocautery to the level of the rectus fascia. The rectus fascia was then nicked in the midline and the fascial incision extended laterally using curved Sutherland scissors. 2 Paola clamps were applied to the inferior rectus fascia and the rectus fascia was dissected off of the underlying rectus muscles using Bovie electrocautery and blunt technique. A similar technique was carried out on the superior rectus fascia. Rectus muscles were then in the midline using curved Sutherland scissors and the peritoneum entered bluntly. The peritoneal incision was extended laterally using blunt technique. The peritoneum over lower uterine segment was incised with curved Sutherland scissors and the bladder flap created bluntly. Bladder blade was then placed to retract the bladder away from the operative field. Scalpel was used to incise the lower uterine segment in a transverse fashion. The uterine incision was extended bluntly and the amniotic sac was ruptured with clear amniotic fluid returned. A single gloved hand was placed into the incision and the head was delivered atraumatically with the assistance of fundal pressure. The trunk and extremities were then delivered atraumatically and the cord was doubly clamped and cut and the handed off to the waiting pediatric team. Cord blood was obtained and the placenta was extracted with a combination of fundal massage and gentle cord traction. The uterus was exteriorized cleared of all clots and debris and the uterine incision reapproximated with a running lock suture of 0 Vicryl followed by a second imbricating suture of 0 Vicryl. Uterine incision was noted be hemostatic. Attention was turned to the right fallopian tube was followed out to its fimbriated end and using a bipolar LigaSure device the fallopian tube was clamped cauterized and transected at the level of the uterine cornua followed by the mesosalpinx which was sequentially clamped transected and cauterized to the fimbriated end. The specimen was then passed off of the operative field. A similar technique was carried out on the contralateral left fallopian tube. At the completion of the procedure both fallopian tube pedicles were noted to be hemostatic. The uterus was returned to the abdomen and the paracolic gutters were cleared of all clots and debris. After careful inspection of the anterior abdominal wall, the bladder flap, and the uterine incision, the visceral peritoneum was reapproximated with a running suture of 2-0 Vicryl. The rectus fascia was closed with a running suture of 0 Vicryl extending from the lateral margins and overlapping in the midline. Subcutaneous tissue space was closed with a running suture of 2-0 Vicryl and the skin was closed with a subcuticular suture of 4-0 Vicryl. Skin glue was used to seal the incision and a dry sterile dressing was placed over the incision Uterus was massaged for any remaining clots and debris's. The patient was transferred to the [facility] and transported to recovery area in stable condition. All sponge lap needle counts are correct x2.
[2020-01-30] MEDS: Oxytocin/Normal Saline 30 UNITS/500 ML BAG 95 UNITS IV (20:07)
[2020-01-30] MEDS: Ketorolac 30 MG/ML VIAL (20:07)
[2020-01-31 08:08] LABS: COVID-19 RT-PCR UVMMC Result Negative (Negative)
[2020-01-31] MEDS: Acetaminophen 325 MG TAB 650 MG PO ×2 (12:55→19:25)
[2020-01-31] MEDS: Ibuprofen 600 MG TAB PO ×2 (13:36→22:40)
[2020-01-31] MEDS: Docusate Sodium 100 MG CAP PO (22:40)
[2020-01-31] MEDS: oxyCODONE 5 mg/Acetaminophen 325 mg TAB PO (22:40)
[2020-02-01] MEDS: oxyCODONE 5 mg/Acetaminophen 325 mg TAB PO (04:34)
--- NOTE | 2020-02-01 07:53 | DSE_ITS ---
Date of service: 02/01/20 Time of Service: 07:53 DS: Diagnosis Discharge Diagnosis (1) Uterine contractions: Status: Acute (2) Previous delivery affecting : Status: Acute (3) delivery delivered: Status: Acute (4) Surgical history of tubal ligation: Status: Chronic Discharge Plan Disposition Patient Disposition: HOME Condition: Good Discharge Details Reason For Visit: IUP @ 37W2D, PREVIOUS C/S, CONTRACTIONS. Admit Date/Time: 01/30/20 17:22 Admit Provider: Lucie Bello Attending Provider: Lucie Bello Primary Care Provider: Arnold Burt Hospital Course Hospital Course: Patient was admitted to [facility] center at 37 weeks 2 days EGA and prodromal labor. She underwent a elective repeat delivery with bilateral salpingectomy on 01/30/2020. Postop course was uncomplicated she was discharged to home on postop day #3 with stable vital signs and successfully breast-feeding. Plan is to have her follow-up in [address] Bello and 6 weeks for routine pos tpartum check. She was given a prescription for Percocet 5/325 number 5 tablets and instructed to use dchj-dwr-evquizb ibuprofen 6 mg every 6 hours for pain. Home Meds and New Rx's Prescriptions: No Action prenat.vits,michelle,xmk-aalv-bktke Tablet 1 tab PO DAILY RF: 0 aspirin 81 mg tablet,chewable 81 mg PO DAILY RF: 0 (DME) FreeStyle Lite Strips Strip 1 ea Miscellaneous QID Qty: 180 RF: 4 (DME) lancets [FreeStyle Lancets] 28 gauge misc 1 ea Miscellaneous QID Qty: 180 RF: 4 oxycodone-acetaminophen [Percocet] 5-325 mg tablet 1 tab PO Q6H MDD 4 PRN (Reason: pain) Qty: 5 RF: 0 Discharge Instructions Stand Alone Forms: BC Discharge Instruc, BC Instructions Activity:: Activity as Tolerated Equipment/Supplies:: No Equipment Needed Diet:: As Tolerated Discharge Orders Discharge Orders: Discharge Order (Routine); Ordered 02/02/20 Ordered By: Lucie Bello DS: Data Vitals/I&O Vitals and I&O: Vital Signs Pain Level 5 01/31/20 13:36 Intake & Output 01/31/20 01/31/20 02/01/20 11:59 23:59 11:59 Intake Total 1400 / 1400 Balance 1400 / 1400 Intake: IV 1400 / 1400 Data Completed and Pending Labs on day of discharge: Labs from last 24 hours 01/31/20 01/30/20 01/30/20 14:47 18:03 17:35 COVID-19 PCR Negative Nasopharyn COVID-19 PCR Not Applicable Ref Test Perform Site [facility] lab Patient ABO/Rh O Negative Antibody Screen Positive Antibody Identification Anti-D Screen Pending Crossmatch See Detail Unit Expiration Date 07/27/2021 Product Lot # [id number] [facility] Medical History (Updated 02/01/20 @ 08:18 by Lucie Bello MD) macrosomia during (Resolved) History of gestational diabetes (Acute) Strep throat (Acute) chronic reinfections as child ~ 12 episodes. Vaginal pain 04/2014 Vag path screen was neg. Herpes testing neg. Viral meningitis (Acute) @ 14 yo 03/29/00 @ [facility] see records Surgical History (Updated 02/01/20 @ 08:19 by uLcie Bello MD) Previous section (Chronic) for lga actual wt. 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 Pets and animals: Yes Pets and animals: cat(s) Do you think of yourself as: straight/heterosexual Current gender identity: female What is your relationship status?: Panel score (0-1 are the most socially isolated patients): 1 Duration: 30-45 minutes/day Special esperanza needs: No Seatbelt use: always Helmet use: Yes Water heater temp set <120 deg: No Working smoke detector in home: Yes Fire extinguisher in home: Yes Carbon monox detector in home: Yes Firearms in home: Yes Victim of physical abuse: No Victim of emotional abuse: No Victim of sexual abuse: No History History 2 Para 1 Hx # Term Pregnancies 1 Multiple births 0 Hx # Pregnancies 0 Ectopic pregnancies 0 AB induced 0 Hx Number of Living Children 1 AB spontaneous 0 Past Pregnancies Del. Date GA/Weeks # Outcome Route Wgt Sex Labor Lgth Anesthes ia Location Prov Complic 03/01/18 39 No Successful 9 lb 11 oz Male елена ma md Delivery Date: 03/01/18 39 wks. GDM with suspected macrosomia low transverse Leny Tam LPN
[2020-02-01] MEDS: Acetaminophen 325 MG TAB 650 MG PO (09:42)
[2020-02-01] MEDS: Ibuprofen 600 MG TAB PO ×2 (09:43→15:30)
[2020-02-01] MEDS: oxyCODONE 5 mg/Acetaminophen 325 mg TAB 1 TAB PO (15:29)
== END 2020-02-01 17:30 | disposition home or self-care (01) | DRG 785 ==
PROVIDERS: Admitting Provider Obstetrics & Gynecology Gynecology; PCP Physician Assistant Medical; Visit Provider Obstetrics & Gynecology Gynecology
PROC: 10D00Z1 Extraction of Products of Conception, Low, Open Approach (ICD-10-PCS; CPT 59514; principal; 2020-01-30 17:40)
DX: Z98.51 Tubal ligation status; Z37.0 Single live birth; O75.82 Onset (spontaneous) of labor after 37 completed weeks of gestation but before 39 completed weeks gestation, with delivery by (planned) cesarean section; O34.211 Maternal care for low transverse scar from previous cesarean delivery; Z29.13 Encounter for prophylactic Rho(D) immune globulin; N83.8 Other noninflammatory disorders of ovary, fallopian tube and broad ligament; Z67.41 Type O blood, Rh negative; Z86.32 Personal history of gestational diabetes; Z11.59 Encounter for screening for other viral diseases
CPT/HCPCS: 59514; 58611; 85027; 85461; 86850; 86900; 86901; 86920; 90384; NC; U0003; 85460; 86870; 88302; J0690; J1885; J2370; J2405; J2790; J3010

== ENCOUNTER 2020-03-10 14:24 | Outpatient (REF) | payer BC, SELFPAY ==
--- NOTE | 2020-03-10 13:00 | PAPFT_PTH ---
PATIENT: Anna Carter LOC: [facility] U#:[id number] AGE/SX: 34/F ROOM: RE03/10/[address]: Lucie Bello : 1985 BED: DIS: 03/10/2020 SPEC #: [id number] RECD: 03/10/20 17:01 STATUS: JENNIE RERossy #: [id number] RAJ: 03/10/20 13:[address]: Lucie Bello DEPT: [facility] Cytology RECD BY: Nohelia Cortez ENTERED: 03/10/20 17:02 SP TYPE: PAPFT OTHR DR: Arnold Burt Tissues: 1 - CX/ENDOCX FOR PAP SMEARS Procedures: PAP THIN PREP/UVM Screening HPV DNA PROBE Comments: [id number]
== END 2020-03-10 14:44 ==
LOC: LBN 14:24
PROVIDERS: PCP Physician Assistant Medical; Visit Provider Obstetrics & Gynecology Gynecology
DX: Z12.4 Encounter for screening for malignant neoplasm of cervix (principal); Z11.51 Encounter for screening for human papillomavirus (HPV)
CPT/HCPCS: 88142; 87624

== ENCOUNTER 2020-05-02 14:01 | Outpatient (REF) | payer BC, SELFPAY ==
[2020-05-05 02:06] LABS: Patient Race White; SARS-CoV-2 RNA Undetected (Undetected); SARS-CoV-2 Specimen Source Nasal
== END 2020-05-02 14:21 ==
LOC: NCHCN 14:01
PROVIDERS: PCP Physician Assistant Medical; Visit Provider Physician Assistant Medical
DX: Z11.59 Encounter for screening for other viral diseases (principal)
CPT/HCPCS: U0003

== ENCOUNTER 2021-05-05 16:13 | Outpatient (REF) | payer BC, SELFPAY ==
[2021-05-05 15:21] LABS: Abs Immature Grans 0.02 10^3/uL (0.0-0.06); Absolute Basophil Count 0.03 10^3/uL (0.0-0.2); Absolute Eosinophil Count 0.08 10^3/uL (0.0-0.7); Absolute Lymphocyte Count 2.37 10^3/uL (1.2-3.4); Absolute Monocyte Count 0.49 10^3/uL (0.1-0.8); Absolute Neutrophil Count 3.16 10^3/uL (1.2-6.7); Basophils % 0.5; Eosinophils % 1.3; HCT 40.9 % (36.0-46.0); HGB 13.6 g/dL (11.2-15.7); Immature Grans % 0.3; Lymphocytes % 38.5; MCH 29.8 pg (27.0-33.0); MCHC 33.3 % (32.0-36.0); MCV 89.5 fL (80-95); MPV 10.7 fL (8.0-11.0); Neutrophils % 51.4; Nucleated RBC 0 %; Platelet Count 269 10^3/uL (130-400); RBC 4.57 10^6/uL (3.93-5.22); RDW 12.2 % (11.7-14.6); RDW-SD 39.8 fL; WBC 6.15 10^3/uL (4.4-10.8)
[2021-05-05 15:40] LABS: INR 1.1 (0.9-1.1); Prothrombin Time 10.8 sec (9.3-11.0)
== END 2021-05-05 16:14 | disposition home or self-care (01) ==
LOC: NCHCN 16:13
PROVIDERS: PCP Physician Assistant Medical; Visit Provider Physician Assistant Medical
DX: R04.0 Epistaxis (principal)
CPT/HCPCS: 85025; 85610; 85730

== ENCOUNTER 2022-12-13 19:00 | Outpatient (REF) | payer BC, SELFPAY ==
[2022-12-13 19:23] LABS: ALT 31 U/L (14-59); AST 22 U/L (15-37); Albumin 4.1 g/dL (3.4-5.0); Alkaline Phosphatase 83 U/L (46-116); Anion Gap 9.4 mmol/L (3-11); BUN 14 mg/dL (7-18); Bilirubin, Total 0.3 mg/dL (0.2-1.0); CO2 27.6 mmol/L (21.0-32.0); CREATININE 0.8 mg/dL (0.55-1.02); Calcium 8.8 mg/dL (8.5-10.1); Calculated LDL 114 mg/dL (<100); Chloride 105 mmol/L (98-107); Cholesterol 201 mg/dL (<200); Estimated GFR 97.26 (mL/min/1.73m2); Glucose 113 mg/dL (74-106); HDL Cholesterol 44 mg/dL (40-60); Potassium 3.9 mmol/L (3.5-5.1); Sodium 142 mmol/L (136-145); Total Protein 7.9 g/dL (6.4-8.2); Triglyceride 218 mg/dL (<150)
== END 2022-12-13 19:01 | disposition home or self-care (01) ==
LOC: NCHCN 19:00
PROVIDERS: PCP Physician Assistant Medical; Visit Provider Nurse Practitioner Family
DX: Z00.00 Encounter for general adult medical examination without abnormal findings (principal); Z13.220 Encounter for screening for lipoid disorders; Z13.228 Encounter for screening for other metabolic disorders; M25.552 Pain in left hip
CPT/HCPCS: 80053; 80061

== ENCOUNTER 2022-12-15 00:50 | Outpatient (CLI) | payer BC, SELFPAY ==
--- NOTE | 2022-12-15 14:58 | DI.RAD_ITS ---
Exam(s) XR HIP LT COMPLETE AP PELVIS EXAM: XR HIP LT COMPLETE AP PELVIS CLINICAL HISTORY: LT HIP PAIN, M25.552. TECHNIQUE: 2D digital imaging was performed. COMPARISON: No exams were available for comparison FINDINGS: 3 views No evidence of pelvic nor hip fracture. No degenerative narrowing of the hip joints. Additional vie ws of the left hip reveal no joint space narrowing nor osteophytes. No evidence of avascular necrosi s. No evidence of developmental hip dysplasia. No osseous lesions in the left hip. Benign bone isl and noted in the intertrochanteric region of the opposite-right. Bones of the pelvis and SI joints a ppear unremarkable. IMPRESSION: No significant radiograph findings in the left hip. Benign bone island noted in the opposite-right h ip. DATA REPOSITORY: RADIATION DOSE DELIVERED:
== END 2022-12-15 01:10 ==
PROVIDERS: PCP Physician Assistant Medical; Visit Provider Nurse Practitioner Family
DX: M25.552 Pain in left hip (principal)
CPT/HCPCS: 73502

== ENCOUNTER 2023-09-13 07:47 | Emergency (ER) | payer BC, SELFPAY ==
[2023-09-13] VITALS (13 sets, daily range): BP systolic 119–150; BP diastolic 72–102; PULSE 79–107; RESP 9–24; TEMP 36.5; O2SAT 97–99
--- NOTE | 2023-09-13 07:45 | RT.EKG_ITS ---
APPROVED REPORT Exam: Resting ECG Reason for Exam: Patient Location: E HR:97 bpm ECG Measurements Heart Rate 97 AXIS WV 160 P 38 QRSd 90 QRS 16 QT 347 T 28 QTc 441 Conclusion Sinus rhythm...normal P axis, V-rate 60- 99 Probable left atrial enlargement...P >50mS, <-0.10mV V1 Narrow complex normal sinus rhythm at a rate of 97. Normal axis. Intervals within normal limits. N o ST segment abnormalities. T wave flattening in aVL. No prior for comparison. No acute injury corrine ho
--- NOTE | 2023-09-13 08:00 | DI.CT_ITS ---
Exam(s) CT THORAX ABD/PEL CTA EXAM: CT THORAX ABD/PEL CTA CLINICAL HISTORY: Back pain and chest pain. TECHNIQUE: Imaging Protocol: Axial CT angiography was performed with multi-slice acquisition and mu lti-planar and/or 3D reconstructions. CONTRAST MATERIAL: Intravenous: Omnipaque 350 Contrast volume:100 ml COMPARISON: No exams were available for comparison FINDINGS: CHEST: Pulmonary Arteries: No evidence of filling defects to suggest pulmonary emboli. Tracheobronchial tree: No bronchiectasis or mucus plugging. Mediastinum and Brtiney: No dominant adenopathy or fluid collection. Pulmonary parenchyma: Focal area of consolidation in the medial left lower lobe. Lungs otherwise cameron ar. Pleura: No effusion. No pneumothorax. Heart: The heart is notdilated. No coronary artery calcifications are seen. Aorta: Thoracic aorta non-dilated. Bones: Unremarkable for age. Tubes, Catheters, and Lines: None. Soft tissues: Unremarkable. ABDOMEN and PELVIS: Liver: Normal size. Normal density. No suspicious measurable mass. Portal, Superior Mesenteric, and Splenic Veins: Unremarkable. Gallbladder and Biliary Tract: No radiodense calculus. No biliary dilatation. Pancreas: Normal density, no abnormal calcifications or inflammatory process. Spleen: Normal. Adrenals: No masses seen. Kidneys: Normal size, contour and axis. No radiodense stones. No obstructive uropathy. No masses seen . Vasculature: Abdominal aorta non-dilated. No atherosclerotic changes. Bowel: No obstruction or bowel wall thickening. Appendix is unremarkable. Normal quantity of stool. Peritoneal Cavity: No ascites, collection or mesenteric inflammatory response. Lymph Nodes: Within normal limits. Soft Tissues: Unremarkable. Bladder: Symmetric distention, no gross wall thickening. Reproductive Organs: Unremarkable as visualized. Bones: Unremarkable for age.. IMPRESSION: 1. Pneumonia at the medial left lower lobe. No evidence of pulmonary embolism. 2. No acute abdominal or pelvic process. RADIATION DOSE DELIVERED: Total DLP DATA REPOSITORY: All CT scans at this facility are submitted to the National Radiology Data Registry (NRDR) Dose Index Registry (DIR) with the [employer] (ACR). RADIATION OPTIMIZATION: All CT scans at this facility use at least one of these dose optimization te chniques: automated exposure control; mA and/or kV adjustment per patient size (includes targeted exa ms where dose is matched to clinical indication); or iterative reconstruction.
--- NOTE | 2023-09-13 08:04 | ED.GENADUL_ITS ---
Discharge Plan Disposition Patient Disposition: Home Discharge Details Clinical Impression: Acute thoracic back pain, Community acquired pneumonia Primary Care Provider: Arnold Burt ED Provider: Jorge Ronquillo Home Meds and New Rx's Prescriptions: New doxycycline hyclate 100 mg capsule 100 mg PO BID 7 Days Qty: 10 0RF Discharge Instructions Instructions: Community Acquired Pneumonia (ED) Additional Instructions: You were seen in the emergency department for your back pain. Your CAT scan showed that you have a pneumonia for which you are receiving antibiotics that you should take as directed. Please follow-up with your primary care provider next week. Please return to the emergency department if you cannot eat or drink if you develop chest pain or if you have any other concerns. For your pain please take medications as follows: 1. Take acetaminophen (Tylenol), 1,000 mg (two 500 mg tabs) every 6 hours [2. Take ibuprofen (Advil), 400 mg every 6 hours.] HPI General Date/Time Provider Initiated Documentation: 09/13/23 07:52 . HPI Narrative: MDM This is an uncomfortable appearing normothermic but mildly tachycardic 37-year-old female with back and chest pain concerning for aortic dissection for which patient will undergo CT angiogram of her thorax abdomen pelvis. No pain out of proportion to suggest necrotizing soft tissue infection. Patient is not a dialysis patient nor is she hypotensive so my suspicion is low for tamponade. No trauma and equal breath sounds so doubt pneumothorax. No fevers to suggest pneumonia. Patient is not hypoxic nor hypotensive so my suspicion is low for PE. No rash to back to suggest zoster. Neurologically intact so doubt CVA. No history of malignancy to suggest pathological fracture. No loss of bowel nor bladder control to suggest cauda equina. No history of IV drug use to suggest increased risk for spinal epidural abscess. Not anticoagulated and no history of any recent neurosurgical procedures so my suspicion is low for spinal epidural hematoma. No nuchal rigidity to suggest meningitis so I do not feel that the patient requires a lumbar puncture. 8:[address] scan showing no dissection nor PE. Patient does have left lower lobe pneumonia consistent with history of coughing. CBC shows leukocytosis but no anemia. No thrombocytopenia. Patient is low risk from a port score perspective with a score of 27 points making her appropriate for outpatient treatment. She is not hypoxic. Will initiate treatment with doxycycline 100 mg twice daily for 7 days given no risk factors for Pseudomonas nor MRSA and history of hives from cephalosporins. 9:05 AM Patient metabolic panel showing normal BUN. No DIANE nor CKD. Hyperglycemia but no anion gap and normal bicarbonate??not consistent with DKA. Reassuring basic metabolic panel. Patient and I discussed return to the emergency department for any worsening pain or shortness of breath. Otherwise I advised primary care follow-up. Patient understood her return indications and was discharged with an empiric trial of expectant outpatient management. 9:15 AM Negative troponin. Negative hCG. Tachycardia resolved in the emergency department. Patient received ibuprofen and doxycycline. Chronic conditions affecting the care of the patient: Elevated BMI History obtained from an outside historian: N/A External record review: No [facility] [place] Diagnostic interpretations performed by me: Per my independent interpretation EKG shows: Narrow complex normal sinus rhythm at a rate of 97. Normal axis. Intervals within normal limits. No ST segment abnormalities. T wave flattening in aVL. No prior for comparison. No acute injury pattern. ]Medications: Doxycycline ibuprofen Social determinants of health affecting disposition: N/A Management discussed with: N/A Treatment/interventions considered: N/A Response to therapies provided: N/A HPI This is a 37-year-old female arrived to the emergency department via private vehicle in the setting of back pain. Patient reports that she had sudden onset severe back pain located between her shoulder blades. She denies any trauma. No recent strains. Patient has had a cough for several weeks but has not had any fevers. She is nauseous but has not been vomiting. She took a gram of acetaminophen last night and again this morning. This did not improve her symptoms significantly. She has not noticed any rash to her back. She has no prior history of similar symptoms. She felt cold when her symptoms first began last night. This morning she developed a central chest pain. She does not feel that her chest pain is connected to her back pain. She did say that the heat improved her back pain. She denies recent tobacco, ethanol, and illicits. She has not noticed any weakness. Exam General: Uncomfortable-appearing in no acute distress speaking in complete s entences. Head: Normocephalic, atraumatic. Eye: Extraocular eye movements intact. No conjunctival injection. No scleral icterus. Ear, nose, mouth, throat: Grossly normal inspection. Normal voice, handling secretions normally. Neck: Trachea midline. No midline cervical spinal tenderness. Cardiovascular: Well-perfused distal extremities. Regular rate and rhythm. Respiratory: Nonlabored respiration. Clear lungs bilaterally. Gastrointestinal: Nondistended abdomen. Soft nontender. Back: Midline thoracic spinal tenderness. No rash to back. No lumbar spinal tenderness. No step-offs. No deformities. Musculoskeletal: No edema. Moving all 4 extremities spontaneously. Skin: Normal for age and race, grossly normal temperature and turgor. No acute rash. Neurologic: Alert and appropriate, no apparent acute deficits. Psychiatric: Mood and manner are appropriate. Grooming and personal hygiene are appropriate. Related Data Home Medications Medication Instructions Recorded Confirmed doxycycline hyclate 100 mg capsule 100 mg PO BID 7 days #10 caps 09/13/23 Previous Rx's Medication Instructions Recorded doxycycline hyclate 100 mg capsule 100 mg PO BID 7 days #10 caps 09/13/23 Allergies Allergy/AdvReac Type Severity Reaction Status Date / Time cephalexin Allergy Mild Hives Verified 02/17/23 13:48 acetaminophen [From Vicodin] Allergy Unknown Verified 02/24/23 10:41 hydrocodone [From Vicodin] Allergy Unknown Verified 02/24/23 10:41 General Stated Complaint: Nk/Back Pain CESIA: 3 Course Vital Signs Vital signs: Vital Signs Temperature 36.5 C 09/13/23 07:52 Pulse 100 H 09/13/23 07:52 Respiratory Rate 16 09/13/23 07:52 Blood Pressure 150/78 H 09/13/23 07:52 Pulse Oximetry 99 09/13/23 07:52 Temperature 36.5 C 09/13/23 07:52 Temperature Source Temporal Artery Scan 09/13/23 07:52 Pulse 100 H 09/13/23 07:52 Respiratory Rate 16 09/13/23 07:52 Respiratory Effort Normal 09/13/23 07:54 Blood Pressure 150/78 H 09/13/23 07:52 Blood Pressure Position Standing 09/13/23 07:52 Pulse Oximetry 99 09/13/23 07:52 Oxygen Delivery Method Room Air 09/13/23 07:52 Oxygen Flow Rate 0 09/13/23 07:52 Pain Level 8 09/13/23 07:54 Medical Decision Making Quality:SDOH Health Related Social Needs: No Data to Display PFSH All Active Problems (Updated 09/13/23 @ 08:56 by Jorge Ronquillo MD) Community acquired pneumonia (Acute) Acute thoracic back pain (Acute) care following delivery (Acute) Surgical history of tubal ligation (Chronic) 01/30/2020 at time of repeat delivery delivery delivered (Acute) 03/01/18. Primary LTCS 9 lbs 11oz. For presumed macrosomia. 01/30/2020. Elective repeat with bilateral tubal sterilization. Librado Acosta. 3600 g Encounter for examination following surgery (Acute) Elevated glucose level (Acute) Medical History (Updated 09/13/23 @ 08:56 by Jorge Ronquillo MD) Epistaxis Prolonged partial thromboplastin time Hip pain History of gestational diabetes Viral meningitis @ 14 yo 03/29/00 @ [facility] see records Strep throat chronic reinfections as child ~ 12 episodes. macrosomia during Vaginal pain 04/2014 Vag path screen was neg. Herpes testing neg. 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 Pets and animals: Yes Pets and animals: cat(s) Do you think of yourself as: straight/heterosexual Current gender identity: female What is your relationship status?: Panel score (0-1 are the most socially isolated patients): 1 Duration: 30-45 minutes/day Special esperanza needs: No Seatbelt use: always Helmet use: Yes Water heater temp set <120 deg: No Working smoke detector in home: Yes Fire extinguisher in home: Yes Carbon monox detector in home: Yes Firearms in home: Yes Do you feel safe at home: Yes Do you feel safe in your relationship?: Yes Victim of physical abuse: No Victim of emotional abuse: No Victim of sexual abuse: No Female Reproductive History Menstrual control method: permanent sterilization History History 2 Para 2 Hx # Term Pregnancies 2 Multiple births 0 Hx # Pregnancies 0 Ectopic pregnancies 0 AB induced 0 Hx Number of Living Children 2 AB spontaneous 0 Past Pregnancies Del. Date GA/Weeks # Preg Succ Route Wgt Sex Labor Lgth Anesth esia Location Prov [facility] 03/01/18 39 No 4394.176 g Male er zayda ma md 01/30/20 37 No 3600.389 [facility]: [facility] Last Updated by: Leny Tam LPN 39 wks. GDM with suspected macrosomia low transverse Delivery Date: 01/30/20 Last Updated by: Eden Marquez LPN Urgent due to uterine ctx and previous ; with bilateral salpingectomy;
[2023-09-13] MEDS: Normal Saline - Diluent 50 ML VIAL IJ (08:28)
[2023-09-13] MEDS: Omnipaque 350 MG/ML 500 ML BTL-Imaging package IJ (08:29)
[2023-09-13 08:44] LABS: Abs Immature Grans 0.08 10^3/uL (0.0-0.06); Absolute Basophil Count 0.05 10^3/uL (0.0-0.2); Absolute Lymphocyte Count 2.37 10^3/uL (1.2-3.4); Absolute Monocyte Count 1.17 10^3/uL (0.1-0.8); Absolute Neutrophil Count 14.12 10^3/uL (1.2-6.7); Basophils % 0.3; Eosinophils % 0.1; HCT 37.7 % (36.0-46.0); HGB 12.3 g/dL (11.2-15.7); Immature Grans % 0.4; Lymphocytes % 13.3; MCH 29.4 pg (27.0-33.0); MCHC 32.6 % (32.0-36.0); MCV 90 fL (80-95); MPV 9.8 fL (8.0-11.0); Monocytes % 6.6; Neutrophils % 79.3; Platelet Count 239 10^3/uL (130-400); RBC 4.18 10^6/uL (3.93-5.22); RDW 12.4 % (11.7-14.6); RDW-SD 40.3 fL
[2023-09-13 08:47] LABS: Absolute Eosinophil Count 0.02 10^3/uL (0.0-0.7)
[2023-09-13 08:58] LABS: Anion Gap 7.9 mmol/L (3-11); BUN 8 mg/dL (7-18); CO2 27.1 mmol/L (21.0-32.0); CREATININE 0.9 mg/dL (0.55-1.02); Calcium 8.9 mg/dL (8.5-10.1); Chloride 106 mmol/L (98-107); Estimated GFR 84.44 (mL/min/1.73m2); Glucose 160 mg/dL (74-106); Potassium 3.7 mmol/L (3.5-5.1); Sodium 141 mmol/L (136-145)
[2023-09-13 09:07] LABS: Troponin I < 50 ng/L (< or =60)
[2023-09-13 09:10] LABS: HCG Qual (Serum) Negative
[2023-09-13] MEDS: Doxycycline Hyclate 100 MG CAP PO (09:22)
[2023-09-13] MEDS: Ibuprofen 600 MG TAB PO (09:22)
== END 2023-09-13 09:23 | disposition home or self-care (01) ==
PROVIDERS: Emergency Provider Emergency Medicine; PCP Physician Assistant Medical
DX: J18.9 Pneumonia, unspecified organism (principal); R94.31 Abnormal electrocardiogram [ECG] [EKG]
CPT/HCPCS: 71275; 80048; 93005; 99285; 74174; 84484; 84703; 85025; 93010; 99284